=== PATIENT | male | born 1945 | race Caucasian/White ===

== ENCOUNTER 2017-01-19 14:43 | Inpatient (IN) | payer MEDICARE ==
[~2017-01-19 14:43] MED LIST: ADVAIR 2501 DISK W/D; AFRIN30 ML; AZO STANDARD97.5 M1 PO; BP PILL; CLINDAMYCIN HC150 MG PO; HYZAAR 100-12.1 EACH PO; KEFLEX500 M4 PO; LISINOPRIL10 MG PO; NORVASC10 M2 PO; NORVASC5 M2 PO; PERCOCET 5/3251 TAB PO; POTASSIUM20 MEQ/13 PO; TYLENOL325 M2 PO; VENTOLIN HFA18 G2 INH
[2017-01-19 17:40] LABS: BASO % 0.3 % (0-2); EOS % 0.7 % (0-7); EOSINOPHIL ABSOLUTE COUNT 0.1 tho/cmm (0.0-0.7); HGB-HEMOGLOBIN 18.1 gm/dl (13.5-17.0); IMMATURE GRANULOCYTES ABSOLUTE 0.07 tho/cmm (0-0.03); IMMATURE GRANULOCYTES PERCENT 0.7 % (0-0.3); LYMPH % 8.9 % (20-45); LYMPH ABSOLUTE COUNT 0.9 tho/cmm (0.8-4.5); MCH (MEAN CORPUSCULAR HGB) 30.1 pg (28.0-32.0); MCHC MEAN CORPUSCULAR HGB CONC 34.8 % (32.0-36.0); MCV (MEAN CELL VOLUME) 86.5 fl (82.0-96.0); MEAN PLATELET VOLUME 10.5 cmc (9.4-12.4); MONO % 7.3 % (0-12); MONOCYTE ABSOLUTE COUNT 0.7 tho/cmm (0.0-1.2); NEUTROPHIL ABSOLUTE COUNT 7.9 tho/cmm (1.6-8.0); NEUTROPHIL-AUTOMATED 7.9 tho/cmm (1.6-8.0); NEUTROPHILS % 82.1 % (40-80); PLATELET COUNT 246 tho/cmm (150-450); RED BLOOD COUNT 6.01 mil/cmm (4.40-5.70); RED CELL DISTRIBUTION WIDTH 13.1 % (12.4-16.4); WHITE BLOOD COUNT 9.6 tho/cmm (4.0-10.0)
[2017-01-19 17:54] LABS: ALB/GLOB RATIO 0.9 (0.8-2.0); ALBUMIN 3.6 g/dl (3.5-5.0); ALKALINE PHOSPHATASE 85 U/L (33-138); ALT/SGPT 28 U/L (12-78); ANION GAP 14 mmol/L (0-20); AST/SGOT 29 U/L (10-40); BILIRUBIN,TOTAL 1.1 mg/dl (0.0-1.5); BLOOD UREA NITROGEN 16 mg/dl (6-24); CALCIUM 8.4 mg/dl (8.5-10.5); CARBON DIOXIDE-VENOUS 26 mmol/L (22-32); CHLORIDE 103 mmol/l (96-110); CREATININE 0.77 mg/dl (0.60-1.30); GLUCOSE 149 mg/dL (70-110); POTASSIUM 3.3 mmol/L (3.7-5.1); SODIUM 140 mmol/L (135-145); eGFR VALUE FOR BLACK >90 mL/Min
[2017-01-19 19:04] LABS: URINE BILIRUBIN NEGATIVE (NEG); URINE BLOOD LARGE (NEG); URINE GLUCOSE (UA) NEGATIVE (NEG); URINE KETONE LARGE (NEG); URINE LEUKOCYTE ESTERASE POSITIVE (NEG); URINE NITRITE NEGATIVE (NEG); URINE PROTEIN MODERATE (NEG)
[2017-01-19 19:05] LABS: URINE APPEARANCE CLEAR; URINE COLOR YELLOW
[2017-01-19 19:19] LABS: URINE EPITHELIAL CELLS 0-5 /[HPF] (0-10)
[2017-01-20 05:33] LABS: ANION GAP 12 mmol/L (0-20); BLOOD UREA NITROGEN 17 mg/dl (6-24); CALCIUM 7.7 mg/dl (8.5-10.5); CARBON DIOXIDE-VENOUS 29 mmol/L (22-32); CHLORIDE 108 mmol/l (96-110); CREATININE 0.88 mg/dl (0.60-1.30); GLUCOSE 123 mg/dL (70-110); POTASSIUM 3.5 mmol/L (3.7-5.1); SODIUM 145 mmol/L (135-145); eGFR VALUE FOR BLACK >90 mL/Min
[2017-01-20] MEDS ORDERED: KEFLEX500 M4 PO (09:22)
[2017-01-20] MEDS ORDERED: NORVASC10 M2 PO (09:22)
[2017-01-20] MEDS ORDERED: POTASSIUM20 MEQ/13 PO (09:23)
[2017-01-20 10:31] LABS: MAGNESIUM 1.8 mg/dl (1.8-2.6); PHOSPHOROUS 2.4 mg/dl (2.5-4.9)
[2017-01-21 05:11] LABS: BASO % 0.4 % (0-2); EOS % 0.5 % (0-7); EOSINOPHIL ABSOLUTE COUNT 0.1 tho/cmm (0.0-0.7); HCT-HEMATOCRIT 49.4 % (36.0-53.5); HGB-HEMOGLOBIN 17.1 gm/dl (13.5-17.0); IMMATURE GRANULOCYTES ABSOLUTE 0.09 tho/cmm (0-0.03); IMMATURE GRANULOCYTES PERCENT 0.8 % (0-0.3); LYMPH % 9.1 % (20-45); MCH (MEAN CORPUSCULAR HGB) 30.1 pg (28.0-32.0); MCHC MEAN CORPUSCULAR HGB CONC 34.6 % (32.0-36.0); MCV (MEAN CELL VOLUME) 86.8 fl (82.0-96.0); MEAN PLATELET VOLUME 9.9 cmc (9.4-12.4); MONO % 5.9 % (0-12); MONOCYTE ABSOLUTE COUNT 0.7 tho/cmm (0.0-1.2); NEUTROPHIL ABSOLUTE COUNT 9.3 tho/cmm (1.6-8.0); NEUTROPHIL-AUTOMATED 9.3 tho/cmm (1.6-8.0); NEUTROPHILS % 83.3 % (40-80); PLATELET COUNT 231 tho/cmm (150-450); RED BLOOD COUNT 5.69 mil/cmm (4.40-5.70); RED CELL DISTRIBUTION WIDTH 13.2 % (12.4-16.4); WHITE BLOOD COUNT 11.1 tho/cmm (4.0-10.0)
[2017-01-21 05:20] LABS: ANION GAP 14 mmol/L (0-20); BLOOD UREA NITROGEN 14 mg/dl (6-24); CALCIUM 7.4 mg/dl (8.5-10.5); CARBON DIOXIDE-VENOUS 25 mmol/L (22-32); CHLORIDE 105 mmol/l (96-110); CREATININE 0.74 mg/dl (0.60-1.30); GLUCOSE 140 mg/dL (70-110); POTASSIUM 3.1 mmol/L (3.7-5.1); SODIUM 141 mmol/L (135-145); eGFR VALUE FOR BLACK >90 mL/Min
[2017-01-22 04:48] LABS: ANION GAP 14 mmol/L (0-20); BLOOD UREA NITROGEN 15 mg/dl (6-24); CALCIUM 7.4 mg/dl (8.5-10.5); CARBON DIOXIDE-VENOUS 24 mmol/L (22-32); CHLORIDE 108 mmol/l (96-110); CREATININE 0.79 mg/dl (0.60-1.30); GLUCOSE 125 mg/dL (70-110); POTASSIUM 3.3 mmol/L (3.7-5.1); SODIUM 143 mmol/L (135-145); eGFR VALUE FOR BLACK >90 mL/Min
[2017-01-23 04:41] LABS: BASO % 0.3 % (0-2); EOS % 0.2 % (0-7); HCT-HEMATOCRIT 51.1 % (36.0-53.5); HGB-HEMOGLOBIN 17.5 gm/dl (13.5-17.0); IMMATURE GRANULOCYTES ABSOLUTE 0.18 tho/cmm (0-0.03); IMMATURE GRANULOCYTES PERCENT 1.3 % (0-0.3); LYMPH ABSOLUTE COUNT 0.8 tho/cmm (0.8-4.5); MCHC MEAN CORPUSCULAR HGB CONC 34.2 % (32.0-36.0); MCV (MEAN CELL VOLUME) 87.7 fl (82.0-96.0); MEAN PLATELET VOLUME 10.1 cmc (9.4-12.4); MONO % 8.5 % (0-12); MONOCYTE ABSOLUTE COUNT 1.1 tho/cmm (0.0-1.2); NEUTROPHIL ABSOLUTE COUNT 11.2 tho/cmm (1.6-8.0); NEUTROPHIL-AUTOMATED 11.2 tho/cmm (1.6-8.0); NEUTROPHILS % 83.7 % (40-80); PLATELET COUNT 249 tho/cmm (150-450); RED BLOOD COUNT 5.83 mil/cmm (4.40-5.70); RED CELL DISTRIBUTION WIDTH 13.6 % (12.4-16.4); WHITE BLOOD COUNT 13.3 tho/cmm (4.0-10.0)
[2017-01-23 04:53] LABS: ANION GAP 13 mmol/L (0-20); BLOOD UREA NITROGEN 16 mg/dl (6-24); CALCIUM 7.1 mg/dl (8.5-10.5); CARBON DIOXIDE-VENOUS 23 mmol/L (22-32); CHLORIDE 111 mmol/l (96-110); CREATININE 0.62 mg/dl (0.60-1.30); GLUCOSE 130 mg/dL (70-110); POTASSIUM 3.4 mmol/L (3.7-5.1); SODIUM 144 mmol/L (135-145); eGFR VALUE FOR BLACK >90 mL/Min
[2017-01-23 18:50] LABS: ABG CO2 ARTERIAL 22 mmol/L (21-27); ARTERIAL BLD GAS O2 SATURATION 98 % (95-98); ARTERIAL BLOOD GAS PCO2 34 mmHg (32-45); ARTERIAL PO2 118 mmHg (70-100); BICARBONATE 21 mmol/L (21-28); BLOOD GAS BASE EXCESS -3 mM/L (-/+3); GLUCOSE 195 mg/dl (65-120); POTASSIUM 3.4 mmol/L (3.5-5.3); SODIUM 143 mmol/L (135-146)
[2017-01-24 06:16] LABS: ANION GAP 12 mmol/L (0-20); BLOOD UREA NITROGEN 13 mg/dl (6-24); CALCIUM 7.2 mg/dl (8.5-10.5); CARBON DIOXIDE-VENOUS 26 mmol/L (22-32); CHLORIDE 109 mmol/l (96-110); POTASSIUM 3.5 mmol/L (3.7-5.1); SODIUM 143 mmol/L (135-145); eGFR VALUE FOR BLACK >90 mL/Min
[2017-01-24 06:21] LABS: GLUCOSE 207 mg/dL (70-110)
== END 2017-01-24 17:50 | disposition other institution (70) | DRG 391 ==
LOC: EDMED 14:43 → EMR2 20:16 → 5EB 21:12 → CCU 01-23 19:26
PROVIDERS: Family Medicine; Internal Medicine; Nurse Practitioner Family; Physician Assistant; ADMIT Hospitalist
PROC: 0DJ08ZZ Inspection of Upper Intestinal Tract, Via Natural or Artificial Opening Endoscopic (ICD-10-PCS; principal; 2017-01-21)
PROC: 05HB33Z Insertion of Infusion Device into Right Basilic Vein, Percutaneous Approach (ICD-10-PCS; 2017-01-21)
DX: R13.19 Other dysphagia (principal); J96.01 Acute respiratory failure with hypoxia; I47.1 Supraventricular tachycardia; N39.0 Urinary tract infection, site not specified; K22.2 Esophageal obstruction; E87.5 Hyperkalemia; I16.0 Hypertensive urgency; E87.6 Hypokalemia; I45.10 Unspecified right bundle-branch block; F41.9 Anxiety disorder, unspecified; N40.0 Benign prostatic hyperplasia without lower urinary tract symptoms; J45.909 Unspecified asthma, uncomplicated; E04.1 Nontoxic single thyroid nodule; R33.9 Retention of urine, unspecified; K21.9 Gastro-esophageal reflux disease without esophagitis; K44.9 Diaphragmatic hernia without obstruction or gangrene; Z90.49 Acquired absence of other specified parts of digestive tract; Z87.440 Personal history of urinary (tract) infections; Z88.0 Allergy status to penicillin; Z85.828 Personal history of other malignant neoplasm of skin; Z88.1 Allergy status to other antibiotic agents; Z87.442 Personal history of urinary calculi
CPT/HCPCS: C1751; G0500; J0360; J0780; J2250; J2270; J2405; J3010; J3480; J7030; Q9967